=== PATIENT | male | born 1965 | race American Indian/Alaskan Native ===

== ENCOUNTER 2017-03-12 10:38 | Emergency (ER) | payer SELFPAY ==
[2017-03-12 11:17] VITALS: BP 140/66
--- NOTE | 2017-03-12 11:52 | Emergency Department Report ---
Chief Complaint: Extremity Injury, Lower Stated Complaint: LEFT KNEE PAIN Time Seen by Provider: 03/12/17 11:49 - HPI History of Present Illness: Patient is a 51 y/o male who presents due to left knee pain, patient states that he was seen in an ER [place] for same complaints and was told he needed surgery. Patient is here with a CT of the left lower extremity. - ROS Review of Systems: left knee pain - Exam Vital Signs: Vital Signs 03/12/17 11:11 Temperature 97.2 F L Pulse Rate 79 Respiratory 18 Rate Blood Pressure 140/66 O2 Sat by Pulse 97 Oximetry Physical Exam: left knee tenderness MSE screening note: Focused history and physical exam performed. Due to findings the following was ordered:patient had CT of left lower extremity ED Disposition for MSE Condition: Stable
[2017-03-12] MEDS ORDERED: PERCOCET 5/325 PO ONE (12:20)
[2017-03-12] MEDS ORDERED: ZOFRAN ODT PO ONE (12:20)
[2017-03-12 12:24] LABS: Bilirubin,Urine NEG (Negative); Blood,Urine NEG (Negative); Ketones,Urine NEG (Negative); Leukocyte Esterase,Urine LG (Negative); Mucus,Urine 1+ /HPF; Nitrite,Urine NEG (Negative); Protein,Urine <15 mg/dL mg/dL (Negative)
--- NOTE | 2017-03-12 13:01 | Emergency Department Report ---
ED Lower Extremity HPI - General Chief Complaint: Extremity Injury, Lower Stated Complaint: LEFT KNEE PAIN Time Seen by Provider: 03/12/17 12:12 Source: patient Mode of arrival: Ambulatory Limitations: Physical Limitation - History of Present Illness Initial Comments: 51-year-old male past medical history obesity, hypertension presents requesting a referral to an educational technology specialist. Patient states that 4 days ago he had a mechanical fall and suffered a left-sided patellar fracture. States he was seen and treated at [facility] in [place]. Has documentation from the hospital and [address] report. Patient was given knee immobilizer short course of Percocet and crutches. Patient states he lives here and wants to be referred to an orthopedic doctor for follow-up and is still having pain near his left knee. Patient denies any other injuries. Is awake alert and oriented 3 has crutches at bedside. Patient's is at bedside. States that it hurts to take more than 2-3 steps due to pain near his left knee. Denies loss of sensation denies any open wounds near left knee. Is able to ambulate with crutches and knee immobilizer. MD Complaint: knee injury Onset/Timin -: days(s) Injury: Knee: Left Type of Injury: blunt Place: street/outdoors Severity: moderate Severity scale (0 -10): 6 Improves With: NSAID, cold therapy, immobilization, rest Worsens With: weight bearing, movement Context: fall Associated Symptoms: swelling, able to partially bear weight - Related Data Previous Rx's Medication Instructions Recorded Last Taken Type traMADol [Ultram 50 MG tab] 50 mg PO Q8HR PRN #20 tablet 07/05/16 Unknown Rx HYDROcodone/APAP 5-325 [[place] 1 each PO Q6HR PRN #12 tablet 03/12/17 Unknown Rx 5/325] Naproxen 500 mg PO BID PRN #30 tablet 03/12/17 Unknown Rx Allergies Allergy/AdvReac Type Severity Reaction Status Date / Time No Known Allergies Allergy Verified 07/05/16 04:45 ED Review of Systems ROS: Stated complaint: LEFT KNEE PAIN Other details as noted in HPI Constitutional: denies: chills, fever Eyes: denies: eye pain, eye discharge, vision change ENT: denies: ear pain, throat pain Respiratory: denies: cough, shortness of breath, wheezing Cardiovascular: denies: chest pain, palpitations Endocrine: no symptoms reported Gastrointestinal: denies: abdominal pain, nausea, diarrhea Genitourinary: denies: urgency, dysuria Musculoskeletal: as per HPI (left knee pain), arthralgia (last knee pain). denies: back pain, joint swelling Skin: denies: rash, lesions Neurological: denies: headache, weakness, paresthesias Psychiatric: denies: anxiety, depression Hematological/Lymphatic: denies: easy bleeding, easy bruising ED Past Medical Hx - Past Medical History Hx Asthma: Yes - Surgical History Additional Surgical History: KNEE - Social History Smoking Status: Current Every Day Smoker Substance Use Type: None - Medications Home Medications: Home Medications Medication Instructions Recorded Confirmed Last Taken Type traMADol [Ultram 50 MG tab] 50 mg PO Q8HR PRN #20 tablet 07/05/16 Unknown Rx HYDROcodone/APAP 5-325 [[place] 1 each PO Q6HR PRN #12 tablet 03/12/17 Unknown Rx 5/325] Naproxen 500 mg PO BID PRN #30 tablet 03/12/17 Unknown Rx ED Physical Exam - General Limitations: Physical Limitation General appearance: alert, in no apparent distress - Head Head exam: Present: atraumatic, normocephalic - Eye Eye exam: Present: normal appearance, PERRL, EOMI - ENT ENT exam: Present: mucous membranes moist - Neck Neck exam: Present: normal inspection - Respiratory Respiratory exam: Present: normal lung sounds bilaterally. Absent: respiratory distress - Cardiovascular Cardiovascular Exam: Present: regular rate, normal rhythm. Absent: systolic murmur, diastolic murmur, rubs, gallop - GI/Abdominal GI/Abdominal exam: Present: soft, normal bowel sounds - Rectal Rectal exam: Present: deferred - Extremities Exam Extremities exam: Present: normal inspection - Expanded Lower Extremity Exam Left Hip exam: Present: normal inspection, full ROM Upper Leg exam: Present: normal inspection, full ROM Knee exam: Present: full ROM (knee flexion and extension intact on exam), tenderness (left anterior knee tenderness), full knee extension Lower Leg exam: Present: normal inspection, full ROM Ankle exam: Present: normal inspection, full ROM Foot/Toe exam: Present: normal inspection, full ROM Neuro vascular tendon exam: Present: no vascular compromise (distal dorsalis pedis and posterior tibial pulses are intact on clinical exam and palpation) 1 - Pain on palpation here, some visible anterior knee swelling - Back Exam Back exam: Present: normal inspection - Neurological Exam Neurological exam: Present: alert, oriented X3, CN II-XII intact, abnormal gait (antalgic gait secondary to pain) - Expanded Neurological Exam Expanded Patient oriented to: Present: person, place, time Motor strength exam: RUE: 5, LUE: 5, RLE: 5, LLE: 5 Best Eye Response ([place]): (4) open spontaneously Best Motor Response (Jos): (6) obeys commands Best Verbal Response (Jos): (5) oriented Jos Total: 15 - Psychiatric Psychiatric exam: Present: normal affect, normal mood - Skin Skin exam: Present: warm, dry, intact, normal color. Absent: rash ED Course Vital Signs 03/12/17 11:11 Temperature 97.2 F L Pulse Rate 79 Respiratory 18 Rate Blood Pressure 140/66 O2 Sat by Pulse 97 Oximetry ED Lower Extremity MDM - Medical Decision Making A/P: Left patellar fracture 1-short course [place], naproxen when necessary 2-follow-up with Dr. Goodson orthopedic surgeon tomorrow. I advised patient to follow-up patient stated that he would do so 3-patient referred to Dr. Goodson [facility] 4- patient already has knee immobilizer and crutches. Pt already has CT report and discharge paperwork from [facility]. Critical care attestation.: If time is entered above; I have spent that time in minutes in the direct care of this critically ill patient, excluding procedure time. ED Disposition Clinical Impression: Left knee pain Qualifiers: Chronicity: acute Qualified Code(s): M25.562 - Pain in left knee Disposition: TO HOME OR SELFCARE Is pt being admited?: No Does the pt Need Aspirin: No Condition: Stable Instructions: Patellar Fracture (ED), Knee Pain (ED), RICE Therapy (ED), Knee Immobilizer (ED) Prescriptions: HYDROcodone/APAP 5-325 [[place] 5/325] 1 each PO Q6HR PRN #12 tablet PRN Reason: Pain Naproxen 500 mg PO BID PRN #30 tablet PRN Reason: Pain Referrals: SHREYA GOODSON MD [Staff Physician] - 3-5 Days [facility] [Provider Group] - 3-5 Days Forms: Accompanied Note, Work/School Release Form(ED) Time of Disposition: 12:59
== END 2017-03-12 13:34 | disposition home or self-care (01) ==
LOC: ED 10:38
DX: M25.562 Pain in left knee (principal); F17.210 Nicotine dependence, cigarettes, uncomplicated
CPT/HCPCS: 81001; 99283; Q0162